=== PATIENT | male | born 1985 | race Two or more races ===

== ENCOUNTER 2024-02-20 08:35 | Emergency (ER) | payer MEDICAID, OTHER ==
[~2024-02-20] VITALS: Ht 185.4 cm; Wt 115.9 kg
[2024-02-20 09:52] VITALS: BP 116/86; PULSE 75; RESP 20; TEMP 98.5; O2SAT 97
[2024-02-20] MEDS: KETOROLAC TROMETH 60MG/2ML VIAL IM ONE (10:10)
[2024-02-20] MEDS ORDERED: BACL10TA PO (10:12)
[2024-02-20] MEDS ORDERED: IBUP-1456 PO (10:12)
== END 2024-02-20 10:25 | disposition home or self-care (01) ==
LOC: ER 08:35
DX: S39.012A Strain of muscle, fascia and tendon of lower back, initial encounter (principal); Z79.899 Other long term (current) drug therapy; X50.1XXA Overexertion from prolonged static or awkward postures, initial encounter; Y93.89 Activity, other specified; Y92.89 Other specified places as the place of occurrence of the external cause; Y99.8 Other external cause status
CPT/HCPCS: 96372; 99283; J1885